=== PATIENT | male | born 1980 | race Two or more races ===

== ENCOUNTER 2016-07-14 09:16 | Emergency (ER) | payer OTHER ==
[~2016-07-14] VITALS: Ht 170.2 cm; Wt 90.7 kg
[2016-07-14 09:30] VITALS: BP 124/67
[2016-07-14] MEDS ORDERED: IBUPROFEN 400 MG TABLET ONE (09:55)
[2016-07-14] MEDS ORDERED: IBUPROFEN 400 MG TABLET PO ONE (10:00)
== END 2016-07-14 10:11 | disposition home or self-care (01) ==
LOC: ER 09:23
DX: M25.531 Pain in right wrist (principal); Z88.0 Allergy status to penicillin
CPT/HCPCS: 73110; A4606; Z7610